=== PATIENT | female | born 1985 | race Caucasian/White ===

== ENCOUNTER → 2017-11-27 12:44 | Outpatient (CLI) | payer OTHER, SELFPAY ==
[2017-11-27 14:56] LABS: HCG Quantitative /Beta subunit 27116 mIU/mL
== END ==
PROVIDERS: Visit Provider Specialist
DX: Z87.42 Personal history of other diseases of the female genital tract (principal); Z78.9 Other specified health status
CPT/HCPCS: 36415; 84702

== ENCOUNTER 2017-11-28 23:06 | Emergency (ER) | payer OTHER, SELFPAY ==
[2017-11-28 23:22] VITALS: BP 162/80; PULSE 84; RESP 16; TEMP 37; O2SAT 100; BMI 30.9
--- NOTE | 2017-11-29 00:02 | ED.PREGNANCY ---
HPI - General Chief complaint: OB/Uterine Contractions Stated complaint: WITH BLEEDING AND PELVIC PAINS Time Seen by Provider: 11/28/17 23:10 Source: patient Mode of arrival: ambulatory Limitations: no limitations History of Present Illness HPI Narrative: 31-year-old female presents with spotting and mild pelvic discomfort for the past few days. She thinks she has about 2 months but has yet to have care. She denies fever or chills nor vaginal discharge. She denies any dysuria, frequency or urgency MD Complaint: vaginal bleeding Onset (ago): day(s) Pain Consistency: constant Location: pelvis Severity: mild Quality: Aching Radiation: pelvis Relieving factors: none Exacerbating factors: none Associated symptoms: denies other symptoms Vaginal discharge: none Vaginal bleeding: light Patient : Yes Related Data Home Medications Medication Instructions Recorded Confirmed drospirenone-ethinyl estradiol PO QDAY #0 02/15/17 [Jigna (28)] Previous Rx's Medication Instructions Recorded sulfamethoxazole-trimethoprim 1 tab PO BID 14 Days #0 tab 02/15/17 nitrofurantoin macrocrystal 50 mg PO QID 10 Days #40 cap 11/29/17 Allergies Allergy/AdvReac Type Severity Reaction Status Date / Time No Known Allergies Allergy Uncoded 07/18/17 12:48 Review of Systems Review of Systems All systems reviewed & are unremarkable except as noted in HPI and below Constitutional Denies chills, Denies fever(s), Denies lethargy and Denies weakness Eyes Denies change in vision, Denies eye discharge, Denies irritation and Denies loss of vision ENT Ears, Nose, Mouth, and Throat: Denies change in voice, Denies neck pain and Denies sore throat Cardiovascular Denies chest pain, Denies irregular heart rhythm, Denies lightheadedness, Denies palpitations, Denies dyspnea, Denies dyspnea on exertion and Denies orthopnea Respiratory Denies cough, Denies dyspnea, Denies dyspnea on exertion and Denies wheezing Gastrointestinal Gastrointestinal: Denies abdominal pain, Denies change in bowel habits, Denies diarrhea, Denies nausea and Denies vomiting Genitourinary Reports abnormal vaginal bleeding, Denies hematuria, Reports pelvic pain, Denies flank pain, Denies urinary incontinence and Denies urinary urgency Musculoskeletal Denies neck pain Integumentary/Breasts Denies pruritus, Denies erythema, Denies rash and Denies wounds Neurologic Denies confusion, Denies loss of vision and Denies weakness Psychiatric Denies anxiety, Denies confusion, Denies depression, Denies homicidal ideation and Denies suicidal ideation Endocrine Denies palpitations Hematologic/Lymphatic Denies easy bruising Allergic/Immunologic Denies wheezing PMFSH - Past Medical History Medical history: Reports non-contributory; Denies aortic aneurysm, arthritis, GERD and myocardial infarction Surgical history: Reports non-contributory 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 Extraoccular muscles are intact bilaterally. There is no subconjunctival hemorrhage or exudate. CHEST: Lungs are clear to auscultation bilaterally and free of wheezes, rales, or rhonchi. Heart rate is regular rhythm, there are no murmurs, clicks, rubs, or gallops. There is no chest wall tenderness. ABD: Abdomen is soft and nontender. There is no guarding or rebound. Bowel sounds are normal in all 4 quadrants. There is no mass or organomegaly. EXT: Full painless ROM of all extremities with no loss of sensation or strength. SKIN: Warm, pink, and dry. No erythema or rash Initial Vital Signs Initial Vital Signs: Vital Signs Temperature 98.6 F 11/28/17 23:22 Pulse Rate 84 11/28/17 23:22 Respiratory Rate 16 11/28/17 23:22 Blood Pressure 162/80 H 11/28/17 23:22 Pulse Oximetry 100 11/28/17 23:22 Course Orders Ordered: Discontinued Medications Nitrofurantoin Macrocrystals (Macrobid 100mg Prepack) 1 bottle MISC SEEINSTR ONE Stop: 11/29/17 01:29 Last Admin: 11/29/17 01:58 Dose: 1 bottle Vital Signs - 8 hr 11/28/17 23:22 Temperature 98.6 F Pulse Rate 84 Respiratory Rate 16 Blood Pressure 162/80 H Pulse Oximetry 100 MDM - OB/Uterine Contractions Medical Records Attestation: I reviewed the patient's medical records. Lab Data Attestation: I reviewed the patient's lab results. Result diagrams: 11/29/17 01:20 11/29/17 01:20 Lab Results 11/29/17 11/29/17 11/29/17 Range/Units 00:10 01:20 01:20 WBC 10.1 (4.5-11.0) X10^3/uL RBC 4.47 (4.0-5.2) X10^6/uL Hgb 13.4 (12.0-16.0) g/dL Hct 39.6 (36-46) % MCV 88.6 (80-100) fL MCH 30.1 (26-34) PG MCHC 33.9 (30-36) % RDW 13.0 (11.6-14.8) % Plt Count 193 (150-400) X10^3/uL Neut % (Auto) 66.8 (50-75) % Lymph % (Auto) 22.4 L (25-40) % [place] % (Auto) 9.7 (3-14) % Eos % (Auto) 0.4 L (2-4) % Baso % (Auto) 0.7 (0-2) % Neut # (Auto) 6700 H (1296-8741) /uL Sodium 138 (137-145) mmol/L Potassium 4.0 (3.4-5.1) mmol/L Chloride 102 (98-107) mmol/L Carbon Dioxide 24 (22-32) mmol/L BUN 8 (7-17) mg/dL Creatinine 0.70 (0.52-1.04) mg/dL Estimated GFR > 60.0 (>60) mL/min BUN/Creatinine Ratio 11.4 (6-22) Glucose 88 (70-100) mg/dL Calcium 10.0 (8.4-10.2) mg/dL Total Bilirubin 0.9 (0.2-1.3) mg/dL AST 24 (14-36) IU/L ALT 47 (9-52) IU/L Alkaline Phosphatase 95 (38-126) U/L Total Protein 7.7 (6.3-8.2) g/dL Albumin 4.3 (3.5-5.0) g/dL Globulin 3.4 (1.7-4.1) g/dL Albumin/Globulin Ratio 1.3 (1.0-2.8) HCG, Quant 89834 mIU/mL Urine Color Yellow Urine Appearance Clear Urine pH 6.5 (4.5-8.0) Ur Specific [place] 1.010 (1.000-1.035) Urine Protein Negative (Negative) Urine Glucose (UA) Negative (Normal) g/dL Urine Ketones Negative (NEGATIVE) Urine Occult Blood Negative (Negative) Urine Nitrate Negative (Negative) Urine Bilirubin Negative (NEGATIVE) Urine Urobilinogen 0.2 (0.2) E.U./dL Ur Leukocyte Esterase 2+ H (NEGATIVE) Urine RBC 1-5/hpf (0-5/HPF) Urine WBC 1-5/hpf (0-5/HPF) Ur Squamous Epith Cells 1-5 /hpf Ur Renal Epithelial Cell 1-5/hpf Urine Bacteria Many (>30) H (None) Ur Culture Indicated? Specimen cultured Micro UA Comment Not Reportable Blood Type 11/29/17 Range/Units 01:20 WBC (4.5-11.0) X10^3/uL RBC (4.0-5.2) X10^6/uL Hgb (12.0-16.0) g/dL Hct (36-46) % MCV (80-100) fL MCH (26-34) PG MCHC (30-36) % RDW (11.6-14.8) % Plt Count (150-400) X10^3/uL Neut % (Auto) (50-75) % Lymph % (Auto) (25-40) % [place] % (Auto) (3-14) % Eos % (Auto) (2-4) % Baso % (Auto) (0-2) % Neut # (Auto) (8548-0656) /uL Sodium (137-145) mmol/L Potassium (3.4-5.1) mmol/L Chloride (98-107) mmol/L Carbon Dioxide (22-32) mmol/L BUN (7-17) mg/dL Creatinine (0.52-1.04) mg/dL Estimated GFR (>60) mL/min BUN/Creatinine Ratio (6-22) Glucose (70-100) mg/dL Calcium (8.4-10.2) mg/dL Total Bilirubin (0.2-1.3) mg/dL AST (14-36) IU/L ALT (9-52) IU/L Alkaline Phosphatase (38-126) U/L Total Protein (6.3-8.2) g/dL Albumin (3.5-5.0) g/dL Globulin (1.7-4.1) g/dL Albumin/Globulin Ratio (1.0-2.8) HCG, Quant mIU/mL Urine Color Urine Appearance Urine pH (4.5-8.0) Ur Specific [place] (1.000-1.035) Urine Protein (Negative) Urine Glucose (UA) (Normal) g/dL Urine Ketones (NEGATIVE) Urine Occult Blood (Negative) Urine Nitrate (Negative) Urine Bilirubin (NEGATIVE) Urine Urobilinogen (0.2) E.U./dL Ur Leukocyte Esterase (NEGATIVE) Urine RBC (0-5/HPF) Urine WBC (0-5/HPF) Ur Squamous Epith Cells Ur Renal Epithelial Cell Urine Bacteria (None) Ur Culture Indicated? Micro UA Comment Blood Type O Positive Imaging Data CT scan - head: Radiologist's impression: PROCEDURE: US OB <= 14 WEEKS FETUS INDICATIONS: BLEEDING OUTSIDE/PRIOR DATING DATA: Last menstrual period (LMP): Not available. LMP-based estimated date of delivery (MOHSEN): Not available. First dating scan (date and location): 11/29/2017 at . Estimated date of delivery (MOHSEN) from first dating scan: 07/23/2018. TECHNIQUE: Real-time scanning was performed of the fetus and maternal pelvic organs, with image documentation. COMPARISON: None. FINDINGS: Embryo: There is an intrauterine gestational sac with pole. The estimated gestational age is 6 weeks 2 days. cardiac activity is present with heart rate 112 bpm. A normal yolk sac is noted. Small sonolucency adjacent to the gestational sac measures 4 x 3 x 7 mm, consistent with small audrey-gestational hemorrhage. Measurement variability in dating: +/- 4 weeks by LMP, +/- 7 days by mean sac diameter (use before 6 weeks gestation if crown-rump length not able to be measured), +/- 5 days by crown-rump length (up to 8 weeks 6 days gestation), +/- 7 days by crown-rump length (up to 13 weeks 6 days gestation). Maternal organs: There is a 1.7 cm simple appearing cyst in the left ovary. Right ovary is normal. Limited images through the kidneys demonstrate no hydronephrosis. IMPRESSION: 1. A single living intrauterine gestation with the estimated gestational age of 6 weeks 3 days, corresponding to ultrasound MOHSEN . 2. A small periestational hematoma. Recommend clinical followup and imaging followup if clinically indicated. 3. A 1.7 cm simple persist in the left ovary. No significant discrepancy with the shift supervisor film processing radiology preliminary report. Dictated by: Elliot Das M.D. on 11/29/2017 at 8:52 Approved by: Elliot Das M.D. on 11/29/2017 at 8:56 Discharge Plan Departure Patient Disposition: Home Clinical Impression: UTI (urinary tract infection), Spotting affecting in first trimester Discharge Date/Time: 11/29/17 02:02 Interventions: ED Discharge Assessment Last Done: 11/29/17 02:02 Instructions: DI for Urinary Tract Infection (UTI) Activity Restrictions/Additional Instructions: *You have been diagnosed with [ spotting in first-trimester, UTI ] *What to do: *Take medications as directed *Follow up with your OB Gyne in the morning, call for an appointment. Let them know you were seen in the Emergency Department and that we ask that you be seen in follow up *Return to ER if you should have any new, worsening or concerning symptoms, such as [increased bleeding, through more than 1 pad per hour, dizziness, lightheadedness, increasing pain, fever ] Prescriptions: New nitrofurantoin macrocrystal 50 mg capsule 50 mg PO QID 10 Days Qty: 40 RF: 0 No Action drospirenone-ethinyl estradiol [Jigna (28)] 3-0.03 mg Tablet PO QDAY Qty: 0 RF: 0 sulfamethoxazole-trimethoprim 800 MG/160 MG tablet 1 tab PO BID 14 Days Qty: 0 RF: 0 Referrals: Cookie Enciso MD [Physician] -
[2017-11-29 01:15] LABS: Appearance Urine UA CLEAR; Bilirubin Urine UA NEGATIVE (NEGATIVE); Color Urine UA YELLOW; Glucose Urine UA NEGATIVE (Normal); Ketones Urine UA NEGATIVE (NEGATIVE); Leukocyte Esterase Urine UA 2+ (NEGATIVE); Nitrite Urine UA Negative (Negative); Occult Blood Urine UA NEGATIVE (Negative); Protein Urine UA NEGATIVE (Negative); Urobilinogen Urine UA 0.2 E.U./dL (0.2); pH Urine UA 6.5 (4.5-8.0)
[2017-11-29 01:29] LABS: Add Manual Diff / Slide Review NO; Basophils Percent Auto 0.7 % (0-2); Eosinophils Percent Auto 0.4 % (2-4); Hematocrit 39.6 % (36-46); Hemoglobin 13.4 g/dL (12.0-16.0); Lymphocytes Percent Auto 22.4 % (25-40); Mean Corpuscular HGB Conc 33.9 % (30-36); Mean Corpuscular Hemoglobin 30.1 PG (26-34); Mean Corpuscular Volume 88.6 fL (80-100); Monocytes Percent Auto 9.7 % (3-14); Neutrophils Absolute Auto 6700 /uL (3000-5900); Neutrophils Percent Auto 66.8 % (50-75); Platelet Count 193 X10^3/uL (150-400); Red Blood Cell Count 4.47 X10^6/uL (4.0-5.2); White Blood Cell Count 10.1 X10^3/uL (4.5-11.0)
[2017-11-29 01:37] LABS: Alanine Aminotransferase 47 IU/L (9-52); Albumin 4.3 g/dL (3.5-5.0); Albumin Globulin Ratio 1.3 (1.0-2.8); Alkaline Phosphatase 95 U/L (38-126); Aspartate Aminotransferase 24 IU/L (14-36); BUN Creatinine Ratio 11.4 (6-22); Bilirubin Total 0.9 mg/dL (0.2-1.3); Blood Urea Nitrogen 8 mg/dL (7-17); Carbon Dioxide 24 mmol/L (22-32); Chloride 102 mmol/L (98-107); Estimated Glomerular Filt Rate > 60.0 mL/min (>60); Globulin 3.4 g/dL (1.7-4.1); Glucose 88 mg/dL (70-100); HEMOLYSIS < 15 (0-50); Sodium 138 mmol/L (137-145); Total Protein 7.7 g/dL (6.3-8.2)
[2017-11-29 01:43] LABS: Bacteria Urine Many (>30); Culture Indicated Urine Specimen Cultured; RBC Urine 1-5/HPF (0-5/HPF); Renal Epithelial Cells Urine 1-5/HPF; Squamous Epithelial Cell Urine 1-5 /HPF; WBC Urine 1-5/HPF (0-5/HPF)
[2017-11-29] MEDS: NITROFURANTOIN 100MG PREPACK 1 BOTTLE MISC (01:58)
[2017-11-29 02:02] VITALS: BP 138/70; PULSE 78; RESP 16; O2SAT 100
[2017-11-29 02:54] LABS: HCG Quantitative /Beta subunit 36712 mIU/mL
--- NOTE | 2017-12-01 03:50 | ED_ITS ---
HPI - General Chief complaint: OB/Uterine Contractions Stated complaint: WITH BLEEDING AND PELVIC PAINS Time Seen by Provider: 11/28/17 23:10 Source: patient Mode of arrival: ambulatory Limitations: no limitations History of Present Illness HPI Narrative: 31-year-old female presents with spotting and mild pelvic discomfort for the past few days. She thinks she has about 2 months but has yet to have care. She denies fever or chills nor vaginal discharge. She denies any dysuria, frequency or urgency MD Complaint: vaginal bleeding Onset (ago): day(s) Pain Consistency: constant Location: pelvis Severity: mild Quality: Aching Radiation: pelvis Relieving factors: none Exacerbating factors: none Associated symptoms: denies other symptoms Vaginal discharge: none Vaginal bleeding: light Patient : Yes Related Data Home Medications Medication Instructions Recorded Confirmed drospirenone-ethinyl estradiol PO QDAY #0 02/15/17 [Jigna (28)] Previous Rx's Medication Instructions Recorded sulfamethoxazole-trimethoprim 1 tab PO BID 14 Days #0 tab 02/15/17 nitrofurantoin macrocrystal 50 mg PO QID 10 Days #40 cap 11/29/17 Allergies Allergy/AdvReac Type Severity Reaction Status Date / Time No Known Allergies Allergy Uncoded 07/18/17 12:48 Review of Systems Review of Systems All systems reviewed & are unremarkable except as noted in HPI and below Constitutional Denies chills, Denies fever(s), Denies lethargy and Denies weakness Eyes Denies change in vision, Denies eye discharge, Denies irritation and Denies loss of vision ENT Ears, Nose, Mouth, and Throat: Denies change in voice, Denies neck pain and Denies sore throat Cardiovascular Denies chest pain, Denies irregular heart rhythm, Denies lightheadedness, Denies palpitations, Denies dyspnea, Denies dyspnea on exertion and Denies orthopnea Respiratory Denies cough, Denies dyspnea, Denies dyspnea on exertion and Denies wheezing Gastrointestinal Gastrointestinal: Denies abdominal pain, Denies change in bowel habits, Denies diarrhea, Denies nausea and Denies vomiting Genitourinary Reports abnormal vaginal bleeding, Denies hematuria, Reports pelvic pain, Denies flank pain, Denies urinary incontinence and Denies urinary urgency Musculoskeletal Denies neck pain Integumentary/Breasts Denies pruritus, Denies erythema, Denies rash and Denies wounds Neurologic Denies confusion, Denies loss of vision and Denies weakness Psychiatric Denies anxiety, Denies confusion, Denies depression, Denies homicidal ideation and Denies suicidal ideation Endocrine Denies palpitations Hematologic/Lymphatic Denies easy bruising Allergic/Immunologic Denies wheezing PMFSH - Past Medical History Medical history: Reports non-contributory; Denies aortic aneurysm, arthritis, GERD and myocardial infarction Surgical history: Reports non-contributory 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 Extraoccular muscles are intact bilaterally. There is no subconjunctival hemorrhage or exudate. CHEST: Lungs are clear to auscultation bilaterally and free of wheezes, rales, or rhonchi. Heart rate is regular rhythm, there are no murmurs, clicks, rubs, or gallops. There is no chest wall tenderness. ABD: Abdomen is soft and nontender. There is no guarding or rebound. Bowel sounds are normal in all 4 quadrants. There is no mass or organomegaly. EXT: Full painless ROM of all extremities with no loss of sensation or strength. SKIN: Warm, pink, and dry. No erythema or rash Initial Vital Signs Initial Vital Signs: Vital Signs Temperature 98.6 F 11/28/17 23:22 Pulse Rate 84 11/28/17 23:22 Respiratory Rate 16 11/28/17 23:22 Blood Pressure 162/80 H 11/28/17 23:22 Pulse Oximetry 100 11/28/17 23:22 Course Orders Ordered: Discontinued Medications Nitrofurantoin Macrocrystals (Macrobid 100mg Prepack) 1 bottle MISC SEEINSTR ONE Stop: 11/29/17 01:29 Last Admin: 11/29/17 01:58 Dose: 1 bottle Vital Signs - 8 hr 11/28/17 23:22 Temperature 98.6 F Pulse Rate 84 Respiratory Rate 16 Blood Pressure 162/80 H Pulse Oximetry 100 MDM - OB/Uterine Contractions Medical Records Attestation: I reviewed the patient's medical records. Lab Data Attestation: I reviewed the patient's lab results. Result diagrams: 11/29/17 01:20 11/29/17 01:20 Lab Results 11/29/17 11/29/17 11/29/17 Range/Units 00:10 01:20 01:20 WBC 10.1 (4.5-11.0) X10^3/uL RBC 4.47 (4.0-5.2) X10^6/uL Hgb 13.4 (12.0-16.0) g/dL Hct 39.6 (36-46) % MCV 88.6 (80-100) fL MCH 30.1 (26-34) PG MCHC 33.9 (30-36) % RDW 13.0 (11.6-14.8) % Plt Count 193 (150-400) X10^3/uL Neut % (Auto) 66.8 (50-75) % Lymph % (Auto) 22.4 L (25-40) % [place] % (Auto) 9.7 (3-14) % Eos % (Auto) 0.4 L (2-4) % Baso % (Auto) 0.7 (0-2) % Neut # (Auto) 6700 H (1683-5842) /uL Sodium 138 (137-145) mmol/L Potassium 4.0 (3.4-5.1) mmol/L Chloride 102 (98-107) mmol/L Carbon Dioxide 24 (22-32) mmol/L BUN 8 (7-17) mg/dL Creatinine 0.70 (0.52-1.04) mg/dL Estimated GFR > 60.0 (>60) mL/min BUN/Creatinine Ratio 11.4 (6-22) Glucose 88 (70-100) mg/dL Calcium 10.0 (8.4-10.2) mg/dL Total Bilirubin 0.9 (0.2-1.3) mg/dL AST 24 (14-36) IU/L ALT 47 (9-52) IU/L Alkaline Phosphatase 95 (38-126) U/L Total Protein 7.7 (6.3-8.2) g/dL Albumin 4.3 (3.5-5.0) g/dL Globulin 3.4 (1.7-4.1) g/dL Albumin/Globulin Ratio 1.3 (1.0-2.8) HCG, Quant 34185 mIU/mL Urine Color Yellow Urine Appearance Clear Urine pH 6.5 (4.5-8.0) Ur Specific [place] 1.010 (1.000-1.035) Urine Protein Negative (Negative) Urine Glucose (UA) Negative (Normal) g/dL Urine Ketones Negative (NEGATIVE) Urine Occult Blood Negative (Negative) Urine Nitrate Negative (Negative) Urine Bilirubin Negative (NEGATIVE) Urine Urobilinogen 0.2 (0.2) E.U./dL Ur Leukocyte Esterase 2+ H (NEGATIVE) Urine RBC 1-5/hpf (0-5/HPF) Urine WBC 1-5/hpf (0-5/HPF) Ur Squamous Epith Cells 1-5 /hpf Ur Renal Epithelial Cell 1-5/hpf Urine Bacteria Many (>30) H (None) Ur Culture Indicated? Specimen cultured Micro UA Comment Not Reportable Blood Type 11/29/17 Range/Units 01:20 WBC (4.5-11.0) X10^3/uL RBC (4.0-5.2) X10^6/uL Hgb (12.0-16.0) g/dL Hct (36-46) % MCV (80-100) fL MCH (26-34) PG MCHC (30-36) % RDW (11.6-14.8) % Plt Count (150-400) X10^3/uL Neut % (Auto) (50-75) % Lymph % (Auto) (25-40) % [place] % (Auto) (3-14) % Eos % (Auto) (2-4) % Baso % (Auto) (0-2) % Neut # (Auto) (4046-6628) /uL Sodium (137-145) mmol/L Potassium (3.4-5.1) mmol/L Chloride (98-107) mmol/L Carbon Dioxide (22-32) mmol/L BUN (7-17) mg/dL Creatinine (0.52-1.04) mg/dL Estimated GFR (>60) mL/min BUN/Creatinine Ratio (6-22) Glucose (70-100) mg/dL Calcium (8.4-10.2) mg/dL Total Bilirubin (0.2-1.3) mg/dL AST (14-36) IU/L ALT (9-52) IU/L Alkaline Phosphatase (38-126) U/L Total Protein (6.3-8.2) g/dL Albumin (3.5-5.0) g/dL Globulin (1.7-4.1) g/dL Albumin/Globulin Ratio (1.0-2.8) HCG, Quant mIU/mL Urine Color Urine Appearance Urine pH (4.5-8.0) Ur Specific [place] (1.000-1.035) Urine Protein (Negative) Urine Glucose (UA) (Normal) g/dL Urine Ketones (NEGATIVE) Urine Occult Blood (Negative) Urine Nitrate (Negative) Urine Bilirubin (NEGATIVE) Urine Urobilinogen (0.2) E.U./dL Ur Leukocyte Esterase (NEGATIVE) Urine RBC (0-5/HPF) Urine WBC (0-5/HPF) Ur Squamous Epith Cells Ur Renal Epithelial Cell Urine Bacteria (None) Ur Culture Indicated? Micro UA Comment Blood Type O Positive Imaging Data CT scan - head: Radiologist's impression: PROCEDURE: US OB <= 14 WEEKS FETUS INDICATIONS: BLEEDING OUTSIDE/PRIOR DATING DATA: Last menstrual period (LMP): Not available. LMP-based estimated date of delivery (MOHSEN): Not available. First dating scan (date and location): 11/29/2017 at . Estimated date of delivery (MOHSEN) from first dating scan: 07/23/2018. TECHNIQUE: Real-time scanning was performed of the fetus and maternal pelvic organs, with image documentation. COMPARISON: None. FINDINGS: Embryo: There is an intrauterine gestational sac with pole. The estimated gestational age is 6 weeks 2 days. cardiac activity is present with heart rate 112 bpm. A normal yolk sac is noted. Small sonolucency adjacent to the gestational sac measures 4 x 3 x 7 mm, consistent with small audrey-gestational hemorrhage. Measurement variability in dating: +/- 4 weeks by LMP, +/- 7 days by mean sac diameter (use before 6 weeks gestation if crown-rump length not able to be measured), +/ - 5 days by crown-rump length (up to 8 weeks 6 days gestation), +/- 7 days by crown-rump length (up to 13 weeks 6 days gestation). Maternal organs: There is a 1.7 cm simple appearing cyst in the left ovary. Right ovary is normal. Limited images through the kidneys demonstrate no hydronephrosis. IMPRESSION: 1. A single living intrauterine gestation with the estimated gestational age of 6 weeks 3 days, corresponding to ultrasound MOHSEN . 2. A small periestational hematoma. Recommend clinical followup and imaging followup if clinically indicated. 3. A 1.7 cm simple persist in the left ovary. No significant discrepancy with the fast food shift lead radiology preliminary report. Dictated by: Elliot Das M.D. on 11/29/2017 at 8:52 Approved by: Elliot Das M.D. on 11/29/2017 at 8:56 Discharge Plan Departure Patient Disposition: Home Clinical Impression: UTI (urinary tract infection), Spotting affecting in first trimester Discharge Date/Time: 11/29/17 02:02 Interventions: ED Discharge Assessment Last Done: 11/29/17 02:02 Instructions: DI for Urinary Tract Infection (UTI) Activity Restrictions/Additional Instructions: *You have been diagnosed with [ spotting in first-trimester, UTI ] *What to do: *Take medications as directed *Follow up with your OB Gyne in the morning, call for an appointment. Let them know you were seen in the Emergency Department and that we ask that you be seen in follow up *Return to ER if you should have any new, worsening or concerning symptoms , such as [increased bleeding, through more than 1 pad per hour, dizziness, lightheadedness, increasing pain, fever ] Prescriptions: New nitrofurantoin macrocrystal 50 mg capsule 50 mg PO QID 10 Days Qty: 40 RF: 0 No Action drospirenone-ethinyl estradiol [Jigna (28)] 3-0.03 mg Tablet PO QDAY Qty: 0 RF: 0 sulfamethoxazole-trimethoprim 800 MG/160 MG tablet 1 tab PO BID 14 Days Qty: 0 RF: 0 Referrals: Cookie Enciso MD [Physician] -
== END 2017-11-29 02:02 | disposition home or self-care (01) ==
PROVIDERS: Emergency Provider Emergency Medicine
DX: O23.41 Unspecified infection of urinary tract in pregnancy, first trimester (principal); O26.851 Spotting complicating pregnancy, first trimester; Z3A.08 8 weeks gestation of pregnancy
CPT/HCPCS: 76801; 76817; 80053; 81001; 81003; 84702; 85025; 86900; 86901; 87086; 99282; 99284

== ENCOUNTER → 2017-12-04 10:25 | Outpatient (CLI) | payer OTHER, SELFPAY ==
--- NOTE | 2017-12-04 10:27 | DI.US.S_ITS ---
PROCEDURE: US OB <= 14 WEEKS FETUS INDICATIONS: DATES OUTSIDE/PRIOR DATING DATA: Last menstrual period (LMP): Unknown. LMP-based estimated date of delivery (MOHSEN): N./A.. First dating scan (date and location): 11/29/17. Estimated date of delivery (MOHSEN) from first dating scan: 07/23/18. TECHNIQUE: Real-time scanning was performed of the fetus and maternal pelvic organs, with image documentation. Endovaginal scanning was also performed to better visualize the fetus and maternal ovaries. COMPARISON: [facility], OB <= 14 WEEKS FETUS, 11/29/2017, 0:47. FINDINGS: Embryo: [place]-rump length measures 0.8 cm corresponding to 6 weeks 6 day. Small perigestational bleed measuring 0.3 x 0.4 x 0.4 cm There is 133 beats per minute. Measurement variability in dating: +/- 4 weeks by LMP, +/- 7 days by mean sac diameter (use before 6 weeks gestation if crown-rump length not able to be measured), +/- 5 days by crown-rump length (up to 8 weeks 6 days gestation), +/- 7 days by crown-rump length (up to 13 weeks 6 days gestation). Maternal organs: Ovaries within normal limits, with 19 mm left corpus luteal cyst.. Limited images through the kidneys demonstrate no hydronephrosis. IMPRESSION: 1. 6 week 6 day single living IUP. Small perigestational site bleed. Dictated by: Rishabh VELA Interpreted: Michael Ellsworth MD on 12/04/2017 at 13:02 Approved by: Michael Ellsworth M.D. on 12/05/2017 at 17:26
== END ==
PROVIDERS: Visit Provider Specialist
DX: Z36.89 Encounter for other specified antenatal screening (principal); Z3A.01 Less than 8 weeks gestation of pregnancy
CPT/HCPCS: 76801; 76817

== ENCOUNTER → 2017-12-07 14:47 | Outpatient (CLI) | payer OTHER, SELFPAY ==
[2017-12-07 15:14] LABS: Add Manual Diff / Slide Review NO; Basophils Percent Auto 0.8 % (0-2); Eosinophils Percent Auto 0.4 % (2-4); Hematocrit 39.5 % (36-46); Hemoglobin 13.4 g/dL (12.0-16.0); Lymphocytes Percent Auto 16.8 % (25-40); Mean Corpuscular HGB Conc 34.1 % (30-36); Mean Corpuscular Hemoglobin 30.3 PG (26-34); Monocytes Percent Auto 7.5 % (3-14); Neutrophils Absolute Auto 6300 /uL (3000-5900); Neutrophils Percent Auto 74.5 % (50-75); Platelet Count 188 X10^3/uL (150-400); Red Blood Cell Count 4.44 X10^6/uL (4.0-5.2); Red Cell Distribution Width 13.1 % (11.6-14.8); White Blood Cell Count 8.5 X10^3/uL (4.5-11.0)
[2017-12-07 16:39] LABS: Hepatitis B Surface Antigen NEGATIVE s/c (NEGATIVE); Rubella Antibody IgG 60.9 IU/mL (>15)
[2017-12-07 17:02] LABS: HIV 1 and 2 Antibody NEGATIVE (NEGATIVE); Hep C Virus Ab w/Reflex Quant NEGATIVE s/c (NEGATIVE)
[2017-12-11 14:49] LABS: HSV 2 IGG AB < 0.90 index (< 0.90)
[2017-12-14 16:09] LABS: Rapid Plasma Reagin NON-REACTIVE
== END ==
PROVIDERS: Visit Provider Specialist
DX: Z34.81 Encounter for supervision of other normal pregnancy, first trimester (principal); Z3A.01 Less than 8 weeks gestation of pregnancy
CPT/HCPCS: 36415; 80055; 86695; 86696; 86703; 86787; 86803; 86850; 86900; 86901

== ENCOUNTER → 2017-12-20 16:26 | Outpatient (CLI) | payer OTHER, SELFPAY | PROVIDERS: Visit Provider Specialist | DX: Z34.81 Encounter for supervision of other normal pregnancy, first trimester (principal); Z3A.09 9 weeks gestation of pregnancy | CPT/HCPCS: 87086 ==

== ENCOUNTER → 2018-02-07 10:56 | Outpatient (CLI) | payer OTHER, SELFPAY ==
[2018-02-14 15:48] LABS: AFP, Serum 36.4 ng/mL; Calc Gestational Age 16.3; Cigarette Smoker N; Donated Egg NOT GIVEN; Donor Egg Age NOT GIVEN; Estriol, Free 1.13 ng/mL; Inhibin A, Dimeric 103 pg/mL; Maternal Weight 150 lbs; Number of Fetuses 1; Previous Pregnancy Down Syndro NOT GIVEN; hCG, MoM 0.35; hCG, Serum 11.5 IU/mL
== END ==
PROVIDERS: PCP Family Medicine; Visit Provider Specialist
DX: Z34.92 Encounter for supervision of normal pregnancy, unspecified, second trimester (principal); Z3A.16 16 weeks gestation of pregnancy
CPT/HCPCS: 36415; 82105; 82677; 84702; 86336

== ENCOUNTER → 2018-03-07 12:30 | Outpatient (CLI) | payer OTHER, SELFPAY ==
--- NOTE | 2018-03-07 12:32 | DI.US.S_ITS ---
PROCEDURE: US OB >= 14 WEEKS FETUS INDICATIONS: 20 WEEK ANATOMY SCAN OUTSIDE/PRIOR DATING DATA: Last menstrual period (LMP): Unknown. LMP-based estimated date of delivery (MOHSEN): N./A.. First dating scan (date and location): 11/29/17. Estimated date of delivery (MOHSEN) from first dating scan: 07/23/18. TECHNIQUE: Real-time scanning was performed of the fetus, with image documentation and biometric measurements. Endovaginal scanning: No COMPARISON: [facility], OB <= 14 WEEKS FETUS, 11/29/2017, 0:47. [facility], , OB > 14 WEEKS, 02/07/2018, 10:32. FINDINGS: General: A single living intrauterine gestation is present. Presentation: Vertex. Placenta: Placental position is posterior, without previa. Amniotic fluid index: 13.6 cm, normal range is 5-24 cm. heart rate: 145 beats per minute. Maternal cervical canal: 3.3 cm long. Normal lower limit is 2.5 cm. biometrics: Biparietal diameter: 20 weeks 6 days Head circumference: 20 weeks 3 days Abdominal circumference: 20 weeks 2 days Femur length: 20 weeks 3 days Estimated gestational age from initial scan: 20 weeks 2 days Composite gestational age from present scan: 20 weeks 3 days Estimated weight and percentile: 353 g; 53rd percentile Measurement variability for biometric dating: +/- 7 days from 14 weeks to 15 weeks 6 days gestation, +/- 10 days from 16 weeks to 21 weeks 6 days gestation, +/- 2 weeks from 22 weeks to 27 weeks 6 days gestation, +/- 3 weeks for 28 weeks gestation or later. weight reference: 4500 g or EFW >90/95% is considered macrosomia or large for gestational age. EFW <10% is small for gestational age. EFW 5% or less is considered intra-uterine growth restriction. Anatomic survey: Neuro: Ventricles are non-dilated at less than 10 mm. Cisterna magna is normal at 3-11 mm. Cerebellum is normal in size and morphology. Nuchal skin fold: Normal at less than 6 mm between 14-21 weeks gestational age. Face: Nose and lips, facial profile are normal. Spine: No evidence for spina bifida. Heart: 4-chambered heart is present, with normal ventricular outflow tracts. Diaphragm: Diaphragm is intact. Stomach: Left-sided stomach is present. Kidneys: No hydronephrosis. Normal is less than 5 mm in 2nd trimester, less than 7 mm in 3rd trimester. Cord: 3-vessel cord has orthotopic insertion. Bladder: Normal in size. Extremities: All 4 extremities identified. IMPRESSION: 1. Single living IUP redemonstrated with appropriate interval growth. 2. Normal anatomic survey. Dictated by: Rishabh VELA Interpreted: Elliot Das MD on 03/07/2018 at 14:34 Approved by: Elliot Das M.D. on 03/07/2018 at 15:48
== END ==
PROVIDERS: PCP Family Medicine; Visit Provider Specialist
DX: Z34.82 Encounter for supervision of other normal pregnancy, second trimester (principal); Z3A.20 20 weeks gestation of pregnancy
CPT/HCPCS: 76811

== ENCOUNTER → 2018-04-12 12:27 | Outpatient (CLI) | payer OTHER, SELFPAY | PROVIDERS: PCP Family Medicine; Visit Provider Specialist | DX: Z34.92 Encounter for supervision of normal pregnancy, unspecified, second trimester (principal); Z3A.25 25 weeks gestation of pregnancy | CPT/HCPCS: 87086 ==

== ENCOUNTER → 2018-04-23 09:46 | Outpatient (CLI) | payer OTHER, SELFPAY ==
[2018-04-23 11:40] LABS: Hematocrit 36.4 % (36-46); Hemoglobin 12.3 g/dL (12.0-16.0)
[2018-04-23 12:10] LABS: GTT (PREG) 1 Hour PP 50gm Dose 109 mg/dL (76-139)
== END ==
PROVIDERS: PCP Family Medicine; Visit Provider Specialist
DX: Z34.92 Encounter for supervision of normal pregnancy, unspecified, second trimester (principal); Z3A.24 24 weeks gestation of pregnancy
CPT/HCPCS: 36415; 82950; 85014; 85018

== ENCOUNTER → 2018-05-01 10:10 | Outpatient (CLI) | payer OTHER, SELFPAY | PROVIDERS: PCP Family Medicine; Visit Provider Specialist | DX: Z3A.23 23 weeks gestation of pregnancy (principal) | CPT/HCPCS: 87086 ==

== ENCOUNTER → 2018-05-09 16:02 | Outpatient (CLI) | payer OTHER, SELFPAY | PROVIDERS: PCP Family Medicine; Visit Provider Specialist | DX: Z3A.29 29 weeks gestation of pregnancy (principal) | CPT/HCPCS: 87086 ==

== ENCOUNTER 2018-05-14 14:21 | Outpatient (CLI) | payer OTHER, SELFPAY ==
--- NOTE | 2018-05-14 14:49 | PM.OBTRLD ---
Visit Information Visit Information Date of evaluation: 05/14/18 Primary OB Provider: Cookie Enciso On-call OB Provider: Maritza Manning Reason for Evaluation: Yes rule out labor Comments/Additional reasons for admission: Pt with bilateral back pain, 6/10 on the pain scale. Is a constant discomfort, not intermittent. Does not believe feels like contractions. No LOF, vaginal bleeding. Feeling baby move regularly. Does have hx of labor and is currently on weekly progesterone injections with weekly cervical lengths. No recent fevers, chills. PFS Social History Smoking Status: Never smoker Social History Smoking Status: Never smoker Evaluation Evaluation Baseline heart rate: 130 Variability: Moderate (11-25) monitor accelerations: Present monitor decelerations: Absent Category of Tracing: I Comments: No contractions seen on tocometry Diagnosis, Plan/Disposition Final Diagnosis (1) Urinary tract infection: Current Visit: Yes Status: Acute Plan/Disposition Plan: Evidence of UTI on U/A. No fevers or significant CVA tenderness to suggest pyelo. Will treat as such with Cephalexin. F/U culture results when available. Pt has f/u with Dr Enciso scheduled for 05/16/18. OB Disposition: home
[2018-05-14 15:16] LABS: Appearance Urine UA SL CLOUDY; Bilirubin Urine UA NEGATIVE (NEGATIVE); Color Urine UA YELLOW; Glucose Urine UA NEGATIVE (Negative); Ketones Urine UA NEGATIVE (NEGATIVE); Leukocyte Esterase Urine UA 1+ (NEGATIVE); Nitrite Urine UA NEGATIVE (Negative); Occult Blood Urine UA NEGATIVE (Negative); Protein Urine UA NEGATIVE (Negative); Specific Gravity Urine UA 1.025 (1.000-1.035); pH Urine UA 6.5 (4.5-8.0)
[2018-05-14 15:29] LABS: Bacteria Urine Many (>30); Culture Indicated Urine Specimen Cultured; RBC Urine 1-5/HPF (0-5/HPF); Squamous Epithelial Cell Urine 1-5 /HPF; WBC Urine 5-10/HPF (0-5/HPF)
== END 2018-05-14 15:50 | disposition home or self-care (01) ==
LOC: LABOR 15:48 → OB 05-16 12:41
PROVIDERS: PCP Family Medicine; Visit Provider Family Medicine
DX: O23.43 Unspecified infection of urinary tract in pregnancy, third trimester (principal); Z3A.30 30 weeks gestation of pregnancy
CPT/HCPCS: 59025; 81001; 81015; 87086; G0378; G0379

== ENCOUNTER 2018-06-05 08:25 | Inpatient (IN) | payer OTHER, SELFPAY ==
[2018-06-05] MEDS: BETAMETHASONE 30 MG/5 ML MDV 12 MG IM (09:15)
--- NOTE | 2018-06-05 09:15 | PM.OBHP.1 ---
OB HPI Date/Time Date of admission: 06/05/18 Date Patient Seen: 06/05/18 Time Patient Seen: 09:16 History of Present Condition Chief complaint: OBSERVATION : 3 Para: 2 Estimated Date of Delivery: 07/23/18 Estimated Gestational Age (weeks): 33 Narrative: Bailey Paiz is a 32 year old female admitted with premature rupture membranes Comments: Patient has been receiving Mary for prior delivery at 29 weeks with twins. She had spontaneous rupture membranes clear fluid at 5:30 a.m. this morning. She denies any contractions. She has been having a headache for the past 8 days that is not resolved with fluids. History of Present care: good care, initiated at week # (9), number of visits (15) and pounds weight gain (12) Dating criteria: LMP confirmed by 1st trimester US Ultrasounds: normal mid trimester US Obstetrical complications: none Medical complications: none Preadmission Labs Blood type: O (+) positive -: Antibody screen: negative, HBsAG: negative, HIV: negative, HSV 1: positive, HSV 2: negative and RPR/VDLR: negative -: Rubella: immune and Varicella: immune HCAB: negative Quad screen: Normal 1 hr GTT: 105 Prior (ies) History: 11/06/2008 29 week gestation for twins 2 males weighing 2 lb 1.5 oz and 2 lb 10 oz Evaluation Evaluation Baseline heart rate: 140 Variability: Moderate (11-25) monitor accelerations: Present monitor decelerations: Absent Contraction Frequency (minutes): 0 Category of Tracing: I Cervical dilation (cm): 0 Cervical effacement (%): 0 station: -4 Non-invasive Membranes Rupture Test: positive PFSH Medical History H/O polycystic ovarian syndrome (Chronic) Migraines (Chronic) Kidney stones (Inactive) Surgical History History of section, unknown scar (Inactive) Social History Smoking Status: Never smoker Social History Smoking Status: Never smoker Meds Home Medications Medication Instructions Recorded Confirmed Type omeprazole 40 mg capsule,delayed 40 mg PO DAILY #30 cap 03/21/18 Rx release breast pump #1 each 05/23/18 05/23/18 Rx Allergies Allergy/AdvReac Type Severity Reaction Status Date / Time No Known Allergies Allergy Uncoded 07/18/17 12:48 Pain meds AdvReac Mild Nausea Uncoded 12/07/17 14:51 Review of Systems Review of Systems Patient has been complaining of a headache that has not gone away for 8 days. No scotomata. No right upper quadrant pain. No fevers. No nausea vomiting. Patient had spontaneous rupture membranes at 5:30 a.m. 06/05/2018. She denies any contractions. Good movement. All systems reviewed & are unremarkable except as noted in HPI and below Exam Vital Signs (past 8 hours): Blood pressure 122/76, pulse of 100, temperature 99.2? Narrative Exam Narrative: HEENT exam within normal limits. Lungs are clear to auscultation and percussion. Heart is regular rate and rhythm no S3-S4 or murmurs. Abdomen is soft, nontender. is vertex, confirmed by ultrasound. Cervix is long, closed, high. Extremities without edema and nontender Objective Labs Result Diagrams: 06/05/18 09:00 06/05/18 09:00 Assessment and Plan (1) Premature rupture of membranes: Qualifiers: PROM gestational age: -third trimester PROM onset of labor timing: unspecified duration between rupture of membranes and onset of labor Qualified Code(s): O42.913 - premature rupture of membranes, unspecified as to length of time between rupture and onset of labor, third trimester Current visit: Yes Status: Acute (2) History of premature delivery, currently : Current visit: No Status: Chronic (3) 33 weeks gestation of : Current visit: Yes Status: Acute Plan: 33 week gestation with spontaneous rupture of membranes not in active labor. Patient had a stat group B strep culture performed. She was started on IV penicillin until culture returns. She received betamethasone 12.5 mg IM. Patient will be discharged to ambulance to the [facility] labor and delivery for level 3 nursery availability.
[2018-06-05 09:17] LABS: Add Manual Diff / Slide Review NO; Basophils Absolute Auto 0 /uL (0-100); Basophils Percent Auto 0.4 % (0-2); Eosinophils Absolute Auto 0 /uL (0-450); Eosinophils Percent Auto 0.3 % (2-4); Hematocrit 37.6 % (36-46); Hemoglobin 12.7 g/dL (12.0-16.0); Lymphocytes Absolute Auto 1200 /uL (1100-4500); Lymphocytes Percent Auto 13.2 % (25-40); Mean Corpuscular HGB Conc 33.8 % (30-36); Mean Corpuscular Hemoglobin 30.5 PG (26-34); Mean Corpuscular Volume 90.3 fL (80-100); Monocytes Absolute Auto 700 /uL (0-900); Monocytes Percent Auto 7.2 % (3-14); Neutrophils Absolute Auto 7400 /uL (1500-7000); Neutrophils Percent Auto 78.9 % (50-75); Platelet Count 177 X10^3/uL (150-400); Red Blood Cell Count 4.17 X10^6/uL (4.0-5.2); Red Cell Distribution Width 13.4 % (11.6-14.8); White Blood Cell Count 9.4 X10^3/uL (4.5-11.0)
[2018-06-05 09:28] LABS: Alanine Aminotransferase 27 IU/L (9-52); Albumin 3.8 g/dL (3.5-5.0); Albumin Globulin Ratio 1.2 (1.0-2.8); Alkaline Phosphatase 138 U/L (38-126); Aspartate Aminotransferase 17 IU/L (14-36); BUN Creatinine Ratio 7.5 (6-22); Bilirubin Total 0.5 mg/dL (0.2-1.3); Bilirubin Unconjugated 0.4 mg/dL (0.0-1.1); Blood Urea Nitrogen 3 mg/dL (7-17); Estimated Glomerular Filt Rate > 60.0 mL/min (>60); Globulin 3.2 g/dL (1.7-4.1); HEMOLYSIS < 15 (0-50)
[2018-06-05] MEDS: LACTATED RINGERS 1,000 ML 100 ML IV (09:40)
[2018-06-05] MEDS: PENICILLIN G POTASSIUM 5,000,000 UNIT in DEXTROSE 5% IN WATER 250 ML IV (10:09)
[2018-06-05 12:16] LABS: Strep Grp B PCR NEG for Grp B Strep
== END 2018-06-05 11:35 | disposition short-term general hospital (02) | DRG 833 ==
PROVIDERS: Admitting Provider Specialist; PCP Family Medicine; Visit Provider Specialist
DX: O42.913 Preterm premature rupture of membranes, unspecified as to length of time between rupture and onset of labor, third trimester (principal); Z3A.33 33 weeks gestation of pregnancy
CPT/HCPCS: 36415; 80076; 82565; 84520; 85025; 87653; G0378; G0379; J0702; J2540

== ENCOUNTER 2019-03-24 02:18 | Emergency (ER) | payer OTHER, SELFPAY ==
[2019-03-24 02:20] VITALS: BP 134/68; PULSE 66; RESP 16; TEMP 36.6; O2SAT 97; BMI 32.7
--- NOTE | 2019-03-24 02:59 | ED.UPPEXIN ---
HPI - Extremity Injury (Upper) General Chief Complaint: Extremity Injury, Upper Stated Complaint: left shoulder pain down through hand/fall 6 wksago Time Seen by Provider: 03/24/19 02:58 Source: patient Mode of arrival: Ambulatory Limitations: no limitations History of Present Illness HPI narrative: The patient slipped on a wet deck at home about 6 weeks ago, she was caring her baby time. She landed on her left shoulder, striking the lateral aspect of shoulder. There is no head, neck or spine injury. Pain is in the anterior left shoulder. She has no scapula pain. She occasionally has difficulty gripping/holding with the left hand, especially when she has pain. She has no numbness to the left hand. She is right-hand dominant. There is low back pain, no lower extremity weakness. She has remote history of left shoulder several years ago. She was not having chronic shoulder pain over that period of time. Since the injury 6 weeks ago pain is increased. She was recently seen and walking clinic, an MRI of the left shoulder has been ordered/scheduled. Related Data Previous Rx's Medication Instructions Recorded breast pump #1 each 05/23/18 hydrocodone-acetaminophen [[place]] 1 tab PO Q4H PRN #14 tab 03/24/19 ondansetron 4 mg PO Q4H PRN #20 tab 03/24/19 Allergies Allergy/AdvReac Type Severity Reaction Status Date / Time No Known Allergies Allergy Uncoded 07/18/17 12:48 Pain meds AdvReac Mild Nausea Uncoded 12/07/17 14:51 Review of Systems Review of Systems ROS Unobtainable: All systems reviewed & are unremarkable except as noted in HPI and below Constitutional Constitutional: Denies weakness Comments: Left shoulder pain, no other injuries. Musculoskeletal Musculoskeletal: Denies back pain, Denies muscle weakness, Denies numbness and Denies tingling Comments: Left shoulder pain as described in HPI. Integumentary/Breasts Skin/Breast: Denies pruritus, Denies erythema, Denies rash and Denies wounds Neurologic Neurologic: Denies confusion, Denies numbness, Denies tingling and Denies weakness Psychiatric Psychiatric: Denies anxiety, Denies confusion and Denies depression Patient History Medical History H/O polycystic ovarian syndrome (Chronic) Kidney stones (Inactive) Migraines (Chronic) Surgical History History of section, unknown scar (Inactive) Social History Smoking Status: Never smoker Smoking Status: Never smoker alcohol intake frequency: other Substance Use Type: does not use Exam Initial Vital Signs Initial Vital Signs: Vital Signs Temperature 97.9 F 03/24/19 02:20 Pulse Rate 66 03/24/19 02:20 Respiratory Rate 16 03/24/19 02:20 Blood Pressure 134/68 03/24/19 02:20 Pulse Oximetry 97 03/24/19 02:20 Const General: cooperative and well developed Nutritional Appearance: well nourished Orientation: alert, awake and oriented x3 Neck Neck: supple and No tender Chest Chest: normal inspection of the chest Back/Spine/Pelvis Back: normal to inspection and No back tenderness Skin General: no rashes or lesions noted Neuro General: alert, oriented x3, gait normal and no focal motor deficits Speech: speech normal Sensory Exam: no sensory deficits noted Other: 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 Extrem Other: Left shoulder pain, in the anterior rotator cuff. Abduction and internal rotation are decreased significantly due to pain. There is no obvious laxity or deformity palpable in left shoulder. She has normal function of the left elbow, wrist and hand. Course Course Course Narrative: From her presentation and exam I suspect a radiator cuff injury. Her x-ray is normal. An MRI is pending. She is taking Tylenol and Advil for pain. I will prescribe [place] for added pain control when necessary. She has been referred to Dr. Lawrence Ro. She was placed in a sling by her nurse prior to discharge. Orders Ordered: ED Orders 03/24/19 03:14 XR shoulder LT min 2V Stat Discontinued Medications Hydrocodone Bitart/Acetaminophen (Vicodin 5/325 Prepack) 1 bottle MISC SEEINSTR ONE Stop: 03/24/19 03:48 Last Admin: 03/24/19 04:00 Dose: 1 bottle Documented by: OUMAR Ondansetron HCl (Zofran Odt Prepack) 1 bottle MISC SEEINSTR ONE Stop: 03/24/19 04:02 Vital Signs Vital signs: Vital Signs - 8 hr 03/24/19 02:20 Temperature 97.9 F Pulse Rate 66 Respiratory Rate 16 Blood Pressure 134/68 Pulse Oximetry 97 MDM - Extremity Injury (Upper) Imaging Data Left shoulder x-ray:: My impression: Normal Discharge Plan Departure Patient Disposition: Home Clinical Impression: Injury of left rotator cuff Instructions: DI for Rotator Cuff Injury Activity Restrictions/Additional Instructions: Use the sling for left arm as needed. Take Tylenol or Advil as needed for shoulder pain. Take [place] every 4-6 hours as needed for added pain control. Use Zofran for nausea when using the [place]. I've given you contact information for an orthopedic surgeon, Dr. Bravo. Call his office for appointment. Return the ER as needed. Prescriptions: New hydrocodone-acetaminophen [[place]] 5-325 mg tablet 1 tab PO Q4H PRN (Reason: pain) Qty: 14 RF: 0 ondansetron 4 mg tablet,disintegrating 4 mg PO Q4H PRN (Reason: nausea and vomiting) Qty: 20 RF: 0 No Action (DME) breast pump [Pump In Style Advanced] device See Dose Instructions .ROUTE .MEDSUPPLY Qty: 1 RF: 0 Referrals: Fransisco Bartholomew MD [Primary Care Provider] - Alek Bravo MD [Physician] -
--- NOTE | 2019-03-24 03:14 | DI.RAD.S_ITS ---
PROCEDURE: XR SHOULDER LT MIN 2V INDICATIONS: Recent fall. Left anterior shoulder pain. TECHNIQUE: 3 views of the shoulder were acquired. COMPARISON: None. FINDINGS: Bones: No fractures or dislocations. No suspicious bony lesions. Visualized ribs appear intact. There is prominent calcific tendinitis IMPRESSION: Severe calcific tendinitis No fracture Dictated by: Michael Ellsworth M.D. on 03/24/2019 at 9:09 Approved by: Michael Ellsworth M.D. on 03/24/2019 at 9:10
[2019-03-24] MEDS: HYDROCODONE/ACET 5/325 PREPACK 1 BOTTLE MISC (04:00)
[2019-03-24] MEDS: ONDANSETRON 4 MG ODT PREPACK 1 BOTTLE MISC (04:09)
[2019-03-24 04:15] VITALS: BP 121/76; PULSE 62; RESP 15; O2SAT 99
== END 2019-03-24 04:17 | disposition home or self-care (01) ==
PROVIDERS: Emergency Provider Emergency Medicine; PCP Family Medicine
DX: S46.002A Unspecified injury of muscle(s) and tendon(s) of the rotator cuff of left shoulder, initial encounter (principal); W01.0XXA Fall on same level from slipping, tripping and stumbling without subsequent striking against object, initial encounter
CPT/HCPCS: 73030; 99282; 99283

== ENCOUNTER → 2019-03-28 12:36 | Outpatient (CLI) | payer OTHER, SELFPAY ==
--- NOTE | 2019-03-28 12:37 | DI.MRI.S_ITS ---
PROCEDURE: MR SHOULDER LT WO CON INDICATIONS: pain, fall, dec rom, r/o rotator cuff injury TECHNIQUE: Noncontrast oblique coronal T2 fast spin echo with fat saturation, oblique sagittal T1 spin echo and T2 fast spin echo with fat saturation, axial T1 spin echo and T2 fast spin echo with fat saturation through the shoulder. COMPARISON: [facility], CR, XR SHOULDER LT MIN 2V, 03/24/2019, 3:11. FINDINGS: Image quality: Excellent. Rotator cuff: Supraspinatus tendinopathy with bursal sided partial-thickness tear. There is calcific tendinitis involving the infraspinatus tendon, with intraosseous extension for example image 17/9, image 17/10. Partial thickness bursal sided tear of the infraspinatus tendon. Interstitial tearing extending to the musculotendinous junction The teres minor tendon appears grossly intact. Subscapularis tendon appears intact No atrophy of the rotator cuff musculature Bones and bursae: No bone marrow contusions or fractures. Mild acromioclavicular joint degeneration. Acromion demonstrates conventional anatomy, without an os acromiale. Severe subacromial-subdeltoid bursitis. Capsule and soft tissues: Labrum intact. Long head of the biceps tendon intact. The rotator interval appears normal, without fibrosis. Coracohumeral ligament intact. IMPRESSION: Supraspinatus tendinopathy with bursal sided partial thickness tear. Extensive calcific tendinitis involving the infraspinatus tendon with intraosseous extension. Partial-thickness bursal sided tear of the infraspinatus tendon, and background tendinopathy Severe subacromial-subdeltoid bursitis Dictated by: Michael Ellsworth M.D. on 03/28/2019 at 13:29 Approved by: Michael Ellsworth M.D. on 03/28/2019 at 13:41
== END ==
PROVIDERS: PCP Family Medicine; Visit Provider Physician Assistant
DX: S49.92XA Unspecified injury of left shoulder and upper arm, initial encounter (principal); M75.112 Incomplete rotator cuff tear or rupture of left shoulder, not specified as traumatic; M19.012 Primary osteoarthritis, left shoulder; M75.52 Bursitis of left shoulder; M75.32 Calcific tendinitis of left shoulder
CPT/HCPCS: 73221